=== PATIENT | male | born 1950 | race Caucasian/White ===

== ENCOUNTER 2017-01-27 11:39 | Emergency (ER) | payer MEDICARE ==
--- NOTE | 2017-01-27 11:53 | ER Document Report ---
ED Psych Disorder / Suicide <RAMONE BEST - Last Filed: 01/27/17 14:12> - General Mode of Arrival: Ambulatory Information source: Patient <HAIM ROQUE - Last Filed: 01/27/17 14:23> <BEBAYARI - Last Filed: 01/27/17 18:10> - General Chief Complaint: Psych Problem Stated Complaint: PSYCH EVAL Time Seen by Provider: 01/27/17 11:46 Notes: Patient is a 66-year-old male that presents to the emergency department today after frequent violent outbursts according at bedside. Patient states the has Alzheimer's and has been increasingly agitated. Patient is on donepizal 10mg, memantine 5mg, and sertraline 100mg. Patient states he is not really sure why he is here, he cannot remember anything that happened today prior to arrival. states that the patient broke the door because he was agitated just prior to arrival. denies any recent med changes. (HAIM ROQUE) - HPI Notes: Patient states he is feeling better now. Patient observed pacing and joking around with staff. Patient showed clinician a picture of his dog and stated she was very sweet. Patient states "I will go outside and get her she is in the car ... Just getting a know she is not there." patient's disclosed the patient has more difficulties in the morning. She continued disclosed that this time he punched the wall and door. Patient disclosed that it was okay because they are "my door and ackerman.... Do not worry out fix them." Patient's asked about the patient consuming alcohol. Clinician provided psychoeducation on mixing alcohol with medications. Patient disclosed he would not drink anymore however this statement did not appear genuine. Patient's stated he probably would not stop drinking. Patient's says the patient has been doing well considering when he was first diagnosed 6 years ago she was told he would most likely be an assisted living facility within 2 years. Patient stated "I knew they were wrong." Patient disclosed that he lives his life normal and does not let his diagnosis affect him. His confirms they have tried to you live very "healthfully." Patient and patient's has recently moved to the area to be closer to their son that lives in [place]. Patient's disclosed that she feels possibly the stress of moving the last couple months has made patient's behavior worse. Patient has an appointment with his new neurologist on February 17, 2017. Patient is alert and orientated to person, place, time and circumstance. Mood is slightly manic with psychomotor agitation. Patient denies suicidal and homicidal ideation. Patient denies auditory visual hallucinations. Delusions are absent and behaviors congruent with intact reality based presentation i.e. organized linear conversations. Eye contact was met well-maintained. Intellectual abilities appear to be within average range. Conversational speech was within normal rate, tone and prosody. Attention and concentration were poor. 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 Patient does not meet IVC criteria per [place] GS 122C. 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 Patient is demonstrating behavioral outbursts which is part of the progressive disease. Patient is recommended to follow-up with his previous scheduled outpatient neurologist on February 17, 2017[address] Dr. Potts was consulted on the care and management of this patient; attending physician is in agreement with her conditions and disposition per (YARI YODER) - Related Data Allergies/Adverse Reactions: No Known Allergies Allergy (Verified 01/27/17 11:50) Past Medical History - Social History Smoking Status: Unknown if Ever Smoked Family History: Reviewed & Not Pertinent <YARI YODER - Last Filed: 01/27/17 18:10> Physical Exam <RAMONE BEST - Last Filed: 01/27/17 14:12> <HAIM ROQUE - Last Filed: 01/27/17 14:23> <YARI YODER - Last Filed: 01/27/17 18:10> - Vital signs Vitals: Temp Pulse Resp BP Pulse Ox 97.9 F 88 18 159/92 H 100 01/27/17 11:42 01/27/17 11:42 01/27/17 11:42 01/27/17 11:42 01/27/17 11:42 - Notes Notes: Physical Exam: General: Calm, cooperative, pleasantly confused. HEENT: Normocephalic. Atraumatic. PERRL. Extraocular movements intact. Oropharynx clear. Neck: Supple. Non-tender. Respiratory: No respiratory distress. Coarse breath sounds bilaterally . Cardiovascular: Regular rate and rhythm. Abdominal: Normal Inspection. Non-tender. No distension. Normal Bowel Sounds. Back: Non-tender. No deformity or step off. Extremities: Moves all four extremities. Upper extremities: Normal inspection. Normal ROM. Lower extremities: Normal inspection. No edema. Normal ROM. Neurological: Confused. AAOx1. Normal speech. Psychological: Normal affect. Normal Mood. Skin: Warm. Dry. Normal color. (HAIM ROQUE) Course - Laboratory Result Diagrams: 01/27/17 12:45 01/27/17 12:45 - EKG Interpretation by Al Rate: Normal - Normal sinus rhythm, rate 74, slight IVCD, QRS otherwise of normal duration. No clear ischemia. <RAMONE BEST - Last Filed: 01/27/17 14:12> - Laboratory Result Diagrams: 01/27/17 12:45 01/27/17 12:45 <HAIM ROQUE - Last Filed: 01/27/17 14:23> - Laboratory Result Diagrams: 01/27/17 12:45 01/27/17 12:45 <YARI YODER - Last Filed: 01/27/17 18:10> - Re-evaluation Re-evalutation: 01/27/17 12:00 Patient is currently calm. We are awaiting the to see what exactly has transpired and see what goals are for this emergency department evaluation. We are obtaining a medication list. 01/27/17 13:59 Psychiatry saw and evaluated the patient. They recommended Depakote 500 mg p.o. twice daily and BuSpar 5 mg every morning and 10 mg nightly and clonidine 0.1 mg every 8 hours as needed agitation. 01/27/17 14:12 We have no other labs to compare with as they have moved recently down from [place] and are obtaining a new physician here. He does have anemia but there is been no blood loss, black stools or other change. They will need follow-up on this as discussed with them. (RAMONE BEST) 01/27/17 13:35 Spoke with our mental health team who has made med recommendations pending their psychiatric evaluation. (HAIM ROQUE) - Vital Signs Vital signs: Temp Pulse Resp BP Pulse Ox 97.6 F 78 18 134/73 H 99 01/27/17 14:17 01/27/17 14:17 01/27/17 14:17 01/27/17 14:17 01/27/17 14:17 - Laboratory Laboratory results interpreted by me: 01/27/17 01/27/17 12:45 12:45 RBC 3.93 L Hgb 9.6 L Hct 31.0 L MCV 79 L MCH 24.5 L MCHC 31.1 L RDW 21.9 H Carbon Dioxide 20 L Discharge <RAMONE BEST - Last Filed: 01/27/17 14:12> <HAIM ROQUE - Last Filed: 01/27/17 14:23> <YARI YODER - Last Filed: 01/27/17 18:10> - Discharge Clinical Impression: Dementia, Agitation, Anemia Condition: Good Disposition: HOME, SELF-CARE Additional Instructions: Contact the physician you are to follow-up with and see if they can move up the appointment. Return for worsening or concern. Prescriptions: Clonidine HCl 0.1 mg PO Q8HP PRN #20 tablet PRN Reason: Buspirone HCl [Buspar 5 mg Tablet] 1 tab PO DAILY #20 tab Divalproex Sodium [Depakote] 500 mg PO BID #15 tablet.dr Forms: Elevated Blood Pressure Scribe Documentation - Scribe Written by Alainaibe:: Cande Wilcox, 01/27/2017 1422 acting as scribe for :: Niesha <HAIM ROQUE - Last Filed: 01/27/17 14:23>
[2017-01-27 13:10] LABS: ABSOLUTE BASOPHILS # (AUTO) 0.1 10^3/uL (0.0-0.2); ABSOLUTE EOSINOPHILS # (AUTO) 0.1 10^3/uL (0.0-0.6); ABSOLUTE LYMPHOCYTES (AUTO) 1.4 10^3/uL (0.5-4.7); ABSOLUTE MONOCYTES (AUTO) 0.7 10^3/uL (0.1-1.4); ABSOLUTE NEUT (AUTO) 6.6 10^3/uL (1.7-8.2); HEMOGLOBIN 9.6 g/dL (13.5-17.0); HGB HCT DIFFERENCE -2.2; LYMPHOCYTES % (AUTO) 16.1 % (13-45); MEAN CORPUSCULAR HEMOGLOBIN 24.5 pg (27.0-33.4); MEAN CORPUSCULAR HGB CONC 31.1 g/dL (32.0-36.0); MEAN CORPUSCULAR VOLUME 79 fl (80-97); MONOCYTES % (AUTO) 7.4 % (3-13); RED BLOOD COUNT 3.93 10^6/uL (4.35-5.55); RED CELL DISTRIBUTION WIDTH 21.9 % (11.5-14.0); SEGMENTED NEUTROPHILS % (AUTO) 74.5 % (42-78); WHITE BLOOD COUNT 8.9 10^3/uL (4.0-10.5)
[2017-01-27 13:12] LABS: APPEARANCE,URINE SLIGHTLY-CLOUDY; BILIRUBIN,URINE NEGATIVE (NEGATIVE); GLUCOSE, URINE NEGATIVE (NEGATIVE); KETONES,URINE NEGATIVE (NEGATIVE); LEUKOCYTE ESTERASE,URINE NEGATIVE (NEGATIVE); NITRITE,URINE NEGATIVE (NEGATIVE); PROTEIN,URINE NEGATIVE (NEGATIVE); UROBILINOGEN,URINE NEGATIVE mg/dL (<2.0)
[2017-01-27 13:22] LABS: ALANINE AMINOTRANSFERASE 40 U/L (21-72); ALBUMIN 4.9 g/dL (3.5-5.0); ALKALINE PHOSPHATASE 104 U/L (38-126); ANION GAP 17 (5-19); ASPARTATE AMINO TRANSFERASE 41 U/L (17-59); BILIRUBIN,DIRECT 0.3 mg/dL (0.0-0.4); BILIRUBIN,TOTAL 0.6 mg/dL (0.2-1.3); BLOOD UREA NITROGEN 16 mg/dL (7-20); CALCIUM 9.9 mg/dL (8.4-10.2); CARBON DIOXIDE 20 mmol/L (22-30); CHLORIDE 105 mmol/L (98-107); CREATININE RESULT 0.75 mg/dL (0.52-1.25); GLUCOSE 102 mg/dL (75-110); POTASSIUM 4.4 mmol/L (3.6-5.0); SODIUM 141.7 mmol/L (137-145)
[2017-01-27 13:25] LABS: ALCOHOL < 10 mg/dL (NONE DETECTED)
[2017-01-27 13:44] LABS: URINE BARBITURATES SCREEN NEGATIVE; URINE METHADONE SCREEN NEGATIVE; URINE OPIATES LOW NEGATIVE; URINE PHENCYCLIDINE SCREEN NEGATIVE
[2017-01-27] MEDS ORDERED: DIVALPROEX SODIUM 500 MG TAB.SR.24H PO ONE (13:45)
[2017-01-27] MEDS ORDERED: CLONIDINE HCL 0.1 MG TABLET PO ONE (13:45)
[2017-01-27] MEDS ORDERED: DIVALPROEX SODIUM 250 MG TABLET.DR PO ONE (13:55)
[2017-01-27 14:26] VITALS: BP 142/75
--- NOTE | 2017-01-27 18:32 | EKG REPORT ---
SEVERITY:- BORDERLINE ECG - SINUS RHYTHM IRBBB : Confirmed by: John Mccarthy MD 27-Jan-2017 18:31:45
== END 2017-01-27 14:25 | disposition home or self-care (01) ==
LOC: ER 11:39
DX: G30.9 Alzheimer's disease, unspecified (principal); F02.81 Dementia in other diseases classified elsewhere, unspecified severity, with behavioral disturbance; Z79.899 Other long term (current) drug therapy; D64.9 Anemia, unspecified
CPT/HCPCS: 93005; 99285; 36415; 80307 ×2; 85025; 80053; 81001; 93010; A9270 ×2